=== PATIENT | female | born 1980 | race Caucasian/White ===

== ENCOUNTER 2016-08-20 08:32 | Emergency (ER) | payer BC ==
[2016-08-20] MEDS ORDERED: ONDANSETRON 4 MG ORAL DISINTEGRATING TAB (S0181) As Ordered ONE (09:07)
[2016-08-20] MEDS ORDERED: KETOROLAC 30 MG/ML VIAL (J1885) As Ordered ONE (09:07)
--- NOTE | 2016-08-20 09:52 | REP ---
PELVIC ULTRASOUND: Real-time sonographic evaluation of the pelvis performed utilizing transabdominal and endovaginal technique. The urinary bladder is empty. The uterus measures 8.3 x 4.5 x 5.0 cm. Endometrial thickness is 1 cm with no endometrial fluid collection. Right ovary measures 2.9 x 1.9 x 1.7 cm and left ovary 4.7 x 3.9 x 4.2 cm. Complex cystic structure in the left ovary probably represents a small hemorrhagic cyst measuring 2.5 x 1.7 x 3.2 cm. There is mild free fluid. There is no evidence of ovarian torsion, with blood flow seen in each ovary with duplex Doppler evaluation. The resistive index of the right ovary is 0.59 and left ovary 0.41. IMPRESSION: Small complex cystic structure left ovary probably represents a small hemorrhagic cyst. Maximum diameter is 3.2 cm. Mild free fluid. No torsion. Signed by Ishan Pickens MD 08/20/2016 12:31 P
--- NOTE | 2016-08-20 10:08 | EDDOCDS ---
Nurse's Notes [facility] Name: Adilia Andrade Age: 36 yrs Sex: Female : 1980 Arrival Date: 08/20/2016 Time: 08:32 Bed I3 / M3 Private MD: Dori Martinez PA-C Diagnosis: Cystitis, unspecified;Unspecified ovarian cysts-left 3.2 cm Presentation: 08/20 08:37 Presenting complaint: Patient states: stomach pains for 1 hour. Risk factors: the kr3 patient reports no vaginal bleeding. Adult Sepsis Screening: The patient does not have new or worsening altered mentation. Patient's respiratory rate is less than 22. Systolic blood pressure is greater than 100. Patient has a qSOFA score of 0- Negative Sepsis Screen. Suicide/Homicide risk assessment- the patient denies having any suicidal and/or homicidal ideations and does not present with any other emotional, behavioral or mental health complaints. Status: Patient is not a special services coordinator or dependent. Transition of care: patient was not received from another setting of care. 08:37 Acuity: ADDISON Level 3 kr3 08:37 Method Of Arrival: Wheelchair kr3 Triage Assessment: 08:38 General: Appears in no apparent distress, Behavior is cooperative. Pain: Location: kr3 right lower quadrant and left lower quadrant Pain currently is 6 out of 10 on a pain scale. Pt Declines HIV testing. Neurological: Level of Consciousness is awake, alert. Respiratory: Respiratory effort is even, unlabored. GI: Reports lower abdominal pain, nausea, Denies constipation, diarrhea. : Denies burning with urination, urinary frequency, urgency. Derm: Skin is normal. 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 lisinopril 10 mg Oral tab once daily (Last dose: 08/19/2016) 2. multivitamin Oral tab daily - PMHx: Hypertension; - PSHx: none; - Social history: Smoking status: Patient states was never smoker of tobacco. No barriers to communication noted, The patient speaks fluent Lao, Speaks appropriately for age. - Family history: Not pertinent. - : The pt / caregiver states he / she is not on anticoagulants. Home medication list is obtained from the patient. - Exposure Risk Screening:: None identified. Screenin:10 Screening information is obtained from the patient. Fall risk: No risks identified. kpj Assistance ADL's: requires no assistance with activities of daily living. Abuse/DV Screen: The patient / caregiver reports he/she is: not in a situation that causes fear, pain or injury. Nutritional screening: No deficits noted. Advance Directives: Currently, there is no health care proxy. There is no active DNR order. There is no living will. There is no Power of Developer [employer]. Advance directive information has not previously been placed in an [facility] medical record. Further advance directive information is declined. home support is adequate. Assessment: 09:10 General: Appears in no apparent distress, well nourished, well groomed, Behavior is kpj appropriate for age, pleasant. Pain: Location: right lower quadrant and left lower quadrant Pain currently is 3 out of 10 on a pain scale. Quality of pain is described as feels like gas. Neurological: Level of Consciousness is awake, alert, Oriented to person, place, time. Respiratory: Airway is patent Respiratory effort is even, unlabored, Respiratory pattern is regular, symmetrical. GI: Abdomen is flat, non- distended Bowel sounds present X 4 quads. Abd is soft X 4 quads Abd is tender to palpation in right lower quadrant and left lower quadrant. : Reports vaginal bleeding that is spotty. Derm: Skin is pink, warm & dry. 09:53 Reassessment: Patient appears in no apparent distress at this time. Patient denies pain kpj at this time. Patient states feeling better. Patient states symptoms have improved. 10:05 General: Appears in no apparent distress, comfortable, Behavior is appropriate for age. kpj Pain: Denies pain. Neurological: No deficits noted. Respiratory: Airway is patent Respiratory effort is even, unlabored. : Reports vaginal bleeding that is spotty. Derm: Skin is pink, warm & dry. Vital Signs: 08:38 BP 99 / 54; Pulse 64; Resp 16; Temp 97.6(O); Pulse Ox 100% on R/A; Weight 58.51 kg (R); kr3 Height 5 ft. 4 in. (162.56 cm) (R); 09:52 BP 144 / 86; Pulse 99; Resp 16; Temp 96.0(T); Pulse Ox 98% on R/A; Pain 0/10; kpj 08:38 Body Mass Index 22.14 (58.51 kg, 162.56 cm) kr3 Vitals: 08:38 Log In Time: August 20, 2016 at 08:30. kr3 ED Course: 08:33 Patient visited by Betzy Toledo Reg. lg 08:33 Dori Martinez is Private Physician. lg 08:33 Patient moved to Waiting lg 08:37 Triage Initiated kr3 08:41 Min Can PA-C is PHCP. cc10 08:41 Patient moved to I3 / M3 kr3 08:42 Dashawn Rees MD is Attending Physician. cc10 08:47 Patient visited by Min Can PA-C. cc10 08:47 Patient visited by Min Can PA-C. cc10 09:07 Urine Culture Sent. jam1 09:07 UA Sent. jam1 09:10 Resting quietly. Awaiting lab results. Waiting for radiology results. kpj 09:10 The patient / caregiver is instructed regarding the plan of care and ED course. Patient j has correct armband on for positive identification. 09:13 Patient moved to Ultrasound br3 09:31 Patient moved to I3 / M3 br3 09:49 Patient name changed from Adilia\S\F\S\Raymond\S\ to Adilia\S\Valentine\S\Raymond. EDMS 09:51 [facility] Payment Agreement was scanned into [employer] and attached to record. lg 09:53 Resting quietly. Waiting for radiology results. 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 cc10 09:56 -US Pelvic Non-Ob Complete Returned. EDMS 10:05 No apparent distress. kpj 10:05 No IV's were initiated during this patient's visit. No procedures done that require [facility] assistance. Administered Medications: 09:14 Drug: Ondansetron ODT 4 mg [ondansetron 4 mg disintegrating tablet (1 tabs)] Route: PO; kpj 09:52 Follow up: Response: Nausea is resolved kpj 09:15 Drug: ketorolac 60 mg [ketorolac 30 mg/mL (1 mL) injection solution (2 mL)] Route: IM; [facility] Site: left gluteus; 09:52 Follow up: Response: Pain is resolved [facility] Point of Care Testing: Urine : 09:07 hCG Reading: Negative; jam1 Ranges: Order Results: Lab Order: UA; SPEC'M 08/20/16 09:07 Test: APPEARANCE, URINE; Value: CLOUDY; Range: CLEAR; Abnormal: Above high normal; Status: F Test: COLOR, URINE; Value: NEIL; Range: YELLOW; Status: F Test: PH,URINE; Value: 6.0; Range: 5.0-9.0; Units: UNITS; Status: F Test: SPECIFIC GRAVITY URINE AUTO; Value: 1.024; Range: 1.002-1.035; Status: F Test: PROTEIN, URINE AUTO; Value: 1+; Range: NEGATIVE; Abnormal: Above high normal; Units: mg/dL; Status: F Test: GLUCOSE, URINE (UA) AUTO; Value: NEGATIVE; Range: NEGATIVE; Units: mg/dL; Status: F Test: KETONE, URINE AUTO; Value: 1+; Range: NEGATIVE; Abnormal: Above high normal; Units: mg/dL; Status: F Test: UROBILINOGEN, URINE AUTO; Value: 0.2; Range: 0.0-2.0; Units: mg/dL; Status: F Test: BILIRUBIN, URINE AUTO; Value: NEGATIVE; Range: NEGATIVE; Status: F Test: NITRITE, URINE AUTO; Value: NEGATIVE; Range: NEGATIVE; Status: F Test: LEUKOCYTE ESTERASE, URINE AUTO; Value: TRACE; Range: NEGATIVE; Abnormal: Above high normal; Status: F Test: BLOOD, URINE BLOOD; Value: 1+; Range: NEGATIVE; Abnormal: Above high normal; Status: F Test: WBC, URINE AUTO; Value: 16; Range: 0-3; Abnormal: Above high normal; Units: /HPF; Status: F Test: RBC, URINE AUTO; Value: 6; Range: 0-3; Abnormal: Above high normal; Units: /HPF; Status: F Test: BACTERIA, URINE AUTO; Value: 2+; Range: NEGATIVE; Abnormal: Above high normal; Status: F Test: SQUAMOUS EPITHELIAL CELL UR AU; Value: 4; Range: 0-6; Units: /HPF; Status: F Test: MUCUS, URINE; Value: LARGE; Range: NEGATIVE; Status: F Test: HYALINE CAST, URINE AUTO; Value: 0; Range: 0-1; Units: /LPF; Status: F Radiology Order: -US Pelvic Non-Ob Complete Test: -US Pelvic Non-Ob Complete REASON FOR EXAMINATION: Adnexal Pain r/o Torsion; PELVIC ULTRASOUND:; ; Real-time sonographic evaluation of the pelvis performed utilizing transabdominal; and endovaginal technique. The urinary bladder is empty. The uterus measures; 8.3 x 4.5 x 5.0 cm. Endometrial thickness is 1 cm with no endometrial fluid; collection. Right ovary measures 2.9 x 1.9 x 1.7 cm and left ovary 4.7 x 3.9 x; 4.2 cm. Complex cystic structure in the left ovary probably represents a small; hemorrhagic cyst measuring 2.5 x 1.7 x 3.2 cm. There is mild free fluid. There; is no evidence of ovarian torsion, with blood flow seen in each ovary with duplex; Doppler evaluation. The resistive index of the right ovary is 0.59 and left; ovary 0.41.; ; IMPRESSION:; Small complex cystic structure left ovary probably represents a small hemorrhagic; cyst. Maximum diameter is 3.2 cm. Mild free fluid. No torsion.; ; Unreviewed; Outcome: 09:56 Discharge ordered by Provider. cc10 10:05 Discharge Assessment: Patient awake, alert and oriented x 3. No cognitive and/or kpj functional deficits noted. Patient verbalized understanding of disposition instructions. patient administered narcotics - no. The following High Risk Discharge criteria are identified: None. Discharged to home ambulatory, with significant other. Condition: stable. Discharge instructions given to patient, Instructed on discharge instructions, follow up and referral plans. medication usage, no driving heavy equipment, no drinking with medication, Demonstrated understanding of instructions, medications, Pt was receptive of discharge instructions/ teaching. Prescriptions given X 2. Ultrasound Study completed. Property sent home with patient. 10:07 Patient left the ED. [facility] Signatures: Dispatcher [employer] EDMS Alva Villavicencio RN RN Shara [place], AGRICULTURE INSTRUCTOR AGRICULTURE INSTRUCTOR jam1 Betzy Toledo, Alison Macario lg,RN RN kr3 Carleen Mccartney br3 Min Can, PA-C PA-C cc10 MTDD
--- NOTE | 2016-08-20 10:08 | EDDOCDS ---
Physician Documentation [facility] Name: Adilia Andrade Age: 36 yrs Sex: Female : 1980 Arrival Date: 08/20/2016 Time: 08:32 Bed I3 / M3 Private MD: Dori Martinez PA-C Disposition: 08/20/16 09:56 Discharged to Home/Self Care. Impression: Cystitis, unspecified, Unspecified ovarian cysts - left 3.2 cm. - Condition is Stable. - Discharge Instructions: Ovarian Cyst, Urinary Tract Infection. - Prescriptions for Macrobid 100 mg Oral Capsule - take 100 milligrams by ORAL route every 12 hours for 5 days; 10 capsule. Ultram 50 mg Oral Tablet - take 1 tablet by ORAL route every 6 hours As needed MDD: 4 tabs; 12 tablet. - Medication Reconciliation form. - Follow up: Your Bakery Machine Mechanic; When: Call to arrange an appointment; Reason: Wound/Symptom Recheck, Recheck today's complaints, Worsening of conditions, Continuance of care. - Problem is new. - Symptoms have improved. Historical: - Allergies: no known allergies; - Home Meds: 1. lisinopril 10 mg Oral tab once daily (Last dose: 08/19/2016) 2. multivitamin Oral tab daily - PMHx: Hypertension; - PSHx: none; - Social history: Smoking status: Patient states was never smoker of tobacco. No barriers to communication noted, The patient speaks fluent Bangladeshi, Speaks appropriately for age. - Family history: Not pertinent. - : The pt / caregiver states he / she is not on anticoagulants. Home medication list is obtained from the patient. - Exposure Risk Screening:: None identified. 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 4 in. (162.56 cm) (R); 09:52 BP 144 / 86; Pulse 99; Resp 16; Temp 96.0(T); Pulse Ox 98% on R/A; Pain 0/10; kpj 08:38 Body Mass Index 22.14 (58.51 kg, 162.56 cm) kr3 MDM: 08:53 UCG by Nursing ordered. cc10 08:53 ketorolac 60 mg IM once ordered. cc10 08:53 Ondansetron ODT Oral Disintegrating Tablet 4 mg PO once ordered. cc10 08:54 UA Ordered. EDMS 08:54 Urine Culture Ordered. EDMS 08:55 -US Pelvic Non-Ob Complete Ordered. EDMS 08:55 DUPLEX SCAN LIMITED (DOPPLER)+US Ordered. EDMS 09:33 Transvaginal NON- US Ordered. EDMS 09:33 Financial registration complete. lg 09:51 COUNTS INCLUDE 234 BEDS AT THE [facility] Payment Agreement was scanned into [employer] and attached to record. lg 09:53 UA Reviewed. cc10 Point of Care Testing: Urine : 09:07 hCG Reading: Negative; jam1 Ranges: Administered Medications: 09:14 Drug: Ondansetron ODT 4 mg [ondansetron 4 mg disintegrating tablet (1 tabs)] Route: PO; [facility] 09:52 Follow up: Response: Nausea is resolved [facility] 09:15 Drug: ketorolac 60 mg [ketorolac 30 mg/mL (1 mL) injection solution (2 mL)] Route: IM; [facility] Site: left gluteus; 09:52 Follow up: Response: Pain is resolved [facility] Signatures: Dispatcher [employer] Alva Knott, RN RN j Betzy Toledo, Lorenzo Reg lg Alison Irvin,RN RN kr3 Min Can, BORA PAAbdirahman cc10 The chart was reviewed and I authenticate all verbal orders and agree with the evaluation and treatment provided.Attachments: 09:51 COUNTS INCLUDE 234 BEDS AT THE [facility] Payment Agreement lg MTDD
--- NOTE | 2016-08-22 11:08 | EDDOCDS ---
Physician Documentation [facility] Name: Adilia Andrade Age: 36 yrs Sex: Female : 1980 Arrival Date: 08/20/2016 Time: 08:32 Bed I3 / M3 Private MD: Dori Martinez PA-C Disposition: 08/20/16 09:56 Discharged to Home/Self Care. Impression: Cystitis, unspecified, Unspecified ovarian cysts - left 3.2 cm. - Condition is Stable. - Discharge Instructions: Ovarian Cyst, Urinary Tract Infection. - Prescriptions for Macrobid 100 mg Oral Capsule - take 100 milligrams by ORAL route every 12 hours for 5 days; 10 capsule. Ultram 50 mg Oral Tablet - take 1 tablet by ORAL route every 6 hours As needed MDD: 4 tabs; 12 tablet. - Medication Reconciliation form. - Follow up: Your Crm Coordinator; When: Call to arrange an appointment; Reason: Wound/Symptom Recheck, Recheck today's complaints, Worsening of conditions, Continuance of care. - Problem is new. - Symptoms have improved. Historical: - Allergies: no known allergies; - Home Meds: 1. lisinopril 10 mg Oral tab once daily (Last dose: 08/19/2016) 2. multivitamin Oral tab daily - PMHx: Hypertension; - PSHx: none; - Social history: Smoking status: Patient states was never smoker of tobacco. No barriers to communication noted, The patient speaks fluent Trinidadian, Speaks appropriately for age. - Family history: Not pertinent. - : The pt / caregiver states he / she is not on anticoagulants. Home medication list is obtained from the patient. - Exposure Risk Screening:: None identified. 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 4 in. (162.56 cm) (R); 09:52 BP 144 / 86; Pulse 99; Resp 16; Temp 96.0(T); Pulse Ox 98% on R/A; Pain 0/10; kpj 08:38 Body Mass Index 22.14 (58.51 kg, 162.56 cm) kr3 MDM: 08:53 UCG by Nursing ordered. cc10 08:53 ketorolac 60 mg IM once ordered. cc10 08:53 Ondansetron ODT Oral Disintegrating Tablet 4 mg PO once ordered. cc10 08:54 UA Ordered. EDMS 08:54 Urine Culture Ordered. EDMS 08:55 -US Pelvic Non-Ob Complete Ordered. EDMS 08:55 DUPLEX SCAN LIMITED (DOPPLER)+US Ordered. EDMS 09:33 Transvaginal NON- US Ordered. EDMS 09:33 Financial registration complete. lg 09:51 [facility] Payment Agreement was scanned into [employer] and attached to record. lg 09:53 UA Reviewed. cc10 15:30 T-Sheet-- Draft Copy was scanned into [employer] and attached to record. gb Point of Care Testing: Urine : 09:07 hCG Reading: Negative; jam1 Ranges: Administered Medications: 09:14 Drug: Ondansetron ODT 4 mg [ondansetron 4 mg disintegrating tablet (1 tabs)] Route: PO; [facility] 09:52 Follow up: Response: Nausea is resolved [facility] 09:15 Drug: ketorolac 60 mg [ketorolac 30 mg/mL (1 mL) injection solution (2 mL)] Route: IM; [facility] Site: left gluteus; 09:52 Follow up: Response: Pain is resolved [facility] Signatures: Dispatcher [employer] Alva Knott RN RN [facility] Suzette Trimble, Reg Reg gb Betzy Toledo, Reg Reg lg Alison Irvin RN RN kr3 Min Can, PA-C PA-C cc10 The chart was reviewed and I authenticate all verbal orders and agree with the evaluation and treatment provided.Attachments: 09:51 [facility] Payment Agreement lg 15:30 T-Sheet-- Draft Copy gb Chart Complete MTDD
--- NOTE | 2016-08-22 11:08 | EDDOCDS ---
Nurse's Notes [facility] Name: Adilia Andrade Age: 36 yrs Sex: Female : 1980 Arrival Date: 08/20/2016 Time: 08:32 Bed I3 / M3 Private MD: Dori Martinez PA-C Diagnosis: Cystitis, unspecified;Unspecified ovarian cysts-left 3.2 cm Presentation: 08/20 08:37 Presenting complaint: Patient states: stomach pains for 1 hour. Risk factors: the kr3 patient reports no vaginal bleeding. Adult Sepsis Screening: The patient does not have new or worsening altered mentation. Patient's respiratory rate is less than 22. Systolic blood pressure is greater than 100. Patient has a qSOFA score of 0- Negative Sepsis Screen. Suicide/Homicide risk assessment- the patient denies having any suicidal and/or homicidal ideations and does not present with any other emotional, behavioral or mental health complaints. Status: Patient is not a rn support services or dependent. Transition of care: patient was not received from another setting of care. 08:37 Acuity: ADDISON Level 3 kr3 08:37 Method Of Arrival: Wheelchair kr3 Triage Assessment: 08:38 General: Appears in no apparent distress, Behavior is cooperative. Pain: Location: kr3 right lower quadrant and left lower quadrant Pain currently is 6 out of 10 on a pain scale. Pt Declines HIV testing. Neurological: Level of Consciousness is awake, alert. Respiratory: Respiratory effort is even, unlabored. GI: Reports lower abdominal pain, nausea, Denies constipation, diarrhea. : Denies burning with urination, urinary frequency, urgency. Derm: Skin is normal. 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 lisinopril 10 mg Oral tab once daily (Last dose: 08/19/2016) 2. multivitamin Oral tab daily - PMHx: Hypertension; - PSHx: none; - Social history: Smoking status: Patient states was never smoker of tobacco. No barriers to communication noted, The patient speaks fluent Swedish, Speaks appropriately for age. - Family history: Not pertinent. - : The pt / caregiver states he / she is not on anticoagulants. Home medication list is obtained from the patient. - Exposure Risk Screening:: None identified. Screenin:10 Screening information is obtained from the patient. Fall risk: No risks identified. kpj Assistance ADL's: requires no assistance with activities of daily living. Abuse/DV Screen: The patient / caregiver reports he/she is: not in a situation that causes fear, pain or injury. Nutritional screening: No deficits noted. Advance Directives: Currently, there is no health care proxy. There is no active DNR order. There is no living will. There is no Power of Process Checker. Advance directive information has not previously been placed in an [facility] medical record. Further advance directive information is declined. home support is adequate. Assessment: 09:10 General: Appears in no apparent distress, well nourished, well groomed, Behavior is kpj appropriate for age, pleasant. Pain: Location: right lower quadrant and left lower quadrant Pain currently is 3 out of 10 on a pain scale. Quality of pain is described as feels like gas. Neurological: Level of Consciousness is awake, alert, Oriented to person, place, time. Respiratory: Airway is patent Respiratory effort is even, unlabored, Respiratory pattern is regular, symmetrical. GI: Abdomen is flat, non- distended Bowel sounds present X 4 quads. Abd is soft X 4 quads Abd is tender to palpation in right lower quadrant and left lower quadrant. : Reports vaginal bleeding that is spotty. Derm: Skin is pink, warm & dry. 09:53 Reassessment: Patient appears in no apparent distress at this time. Patient denies pain kpj at this time. Patient states feeling better. Patient states symptoms have improved. 10:05 General: Appears in no apparent distress, comfortable, Behavior is appropriate for age. kpj Pain: Denies pain. Neurological: No deficits noted. Respiratory: Airway is patent Respiratory effort is even, unlabored. : Reports vaginal bleeding that is spotty. Derm: Skin is pink, warm & dry. Vital Signs: 08:38 BP 99 / 54; Pulse 64; Resp 16; Temp 97.6(O); Pulse Ox 100% on R/A; Weight 58.51 kg (R); kr3 Height 5 ft. 4 in. (162.56 cm) (R); 09:52 BP 144 / 86; Pulse 99; Resp 16; Temp 96.0(T); Pulse Ox 98% on R/A; Pain 0/10; kpj 08:38 Body Mass Index 22.14 (58.51 kg, 162.56 cm) kr3 Vitals: 08:38 Log In Time: August 20, 2016 at 08:30. kr3 ED Course: 08:33 Patient visited by Betzy Toledo Reg. lg 08:33 Dori Martinez is Private Physician. lg 08:33 Patient moved to Waiting lg 08:37 Triage Initiated kr3 08:41 Min Can PA-C is PHCP. cc10 08:41 Patient moved to I3 / M3 kr3 08:42 Dashawn Rees MD is Attending Physician. cc10 08:47 Patient visited by Min Can PA-C. cc10 08:47 Patient visited by Min Can PA-C. cc10 09:07 Urine Culture Sent. jam1 09:07 UA Sent. jam1 09:10 Resting quietly. Awaiting lab results. Waiting for radiology results. kpj 09:10 The patient / caregiver is instructed regarding the plan of care and ED course. Patient j has correct armband on for positive identification. 09:13 Patient moved to Ultrasound br3 09:31 Patient moved to I3 / M3 br3 09:49 Patient name changed from Adilia\S\F\S\Raymond\S\ to Adilia\S\Valentine\S\Raymond. EDMS 09:51 [facility] Payment Agreement was scanned into [employer] and attached to record. lg 09:53 Resting quietly. Waiting for radiology results. kpj 09:56 Your Traveler Changer is Referral Physician. cc10 09:56 -US Pelvic Non-Ob Complete Returned. EDMS 10:05 No apparent distress. kpj 10:05 No IV's were initiated during this patient's visit. No procedures done that require [facility] assistance. 15:30 T-Sheet-- Draft Copy was scanned into [employer] and attached to record. gb Administered Medications: 09:14 Drug: Ondansetron ODT 4 mg [ondansetron 4 mg disintegrating tablet (1 tabs)] Route: PO; kpj 09:52 Follow up: Response: Nausea is resolved kpj 09:15 Drug: ketorolac 60 mg [ketorolac 30 mg/mL (1 mL) injection solution (2 mL)] Route: IM; kpj Site: left gluteus; 09:52 Follow up: Response: Pain is resolved [facility] Point of Care Testing: Urine : 09:07 hCG Reading: Negative; jam1 Ranges: Order Results: Lab Order: UA; SPEC'M 08/20/16 09:07 Test: APPEARANCE, URINE; Value: CLOUDY; Range: CLEAR; Abnormal: Above high normal; Status: F Test: COLOR, URINE; Value: NEIL; Range: YELLOW; Status: F Test: PH,URINE; Value: 6.0; Range: 5.0-9.0; Units: UNITS; Status: F Test: SPECIFIC GRAVITY URINE AUTO; Value: 1.024; Range: 1.002-1.035; Status: F Test: PROTEIN, URINE AUTO; Value: 1+; Range: NEGATIVE; Abnormal: Above high normal; Units: mg/dL; Status: F Test: GLUCOSE, URINE (UA) AUTO; Value: NEGATIVE; Range: NEGATIVE; Units: mg/dL; Status: F Test: KETONE, URINE AUTO; Value: 1+; Range: NEGATIVE; Abnormal: Above high normal; Units: mg/dL; Status: F Test: UROBILINOGEN, URINE AUTO; Value: 0.2; Range: 0.0-2.0; Units: mg/dL; Status: F Test: BILIRUBIN, URINE AUTO; Value: NEGATIVE; Range: NEGATIVE; Status: F Test: NITRITE, URINE AUTO; Value: NEGATIVE; Range: NEGATIVE; Status: F Test: LEUKOCYTE ESTERASE, URINE AUTO; Value: TRACE; Range: NEGATIVE; Abnormal: Above high normal; Status: F Test: BLOOD, URINE BLOOD; Value: 1+; Range: NEGATIVE; Abnormal: Above high normal; Status: F Test: WBC, URINE AUTO; Value: 16; Range: 0-3; Abnormal: Above high normal; Units: /HPF; Status: F Test: RBC, URINE AUTO; Value: 6; Range: 0-3; Abnormal: Above high normal; Units: /HPF; Status: F Test: BACTERIA, URINE AUTO; Value: 2+; Range: NEGATIVE; Abnormal: Above high normal; Status: F Test: SQUAMOUS EPITHELIAL CELL UR AU; Value: 4; Range: 0-6; Units: /HPF; Status: F Test: MUCUS, URINE; Value: LARGE; Range: NEGATIVE; Status: F Test: HYALINE CAST, URINE AUTO; Value: 0; Range: 0-1; Units: /LPF; Status: F Lab Order: Urine Culture; SPEC'M 08/20/16 09:07 Test: URINE CULTURE; Value: <EXTERNAL COMMENT eCWMed> FULL REPORT IN LAB NOTES (eCW and Medent).; Status: F Test: URINE CULTURE; Value: URINE CULTURE RESULT NO GROWTH; Status: F Radiology Order: -US Pelvic Non-Ob Complete Test: -US Pelvic Non-Ob Complete REASON FOR EXAMINATION: Adnexal Pain r/o Torsion; PELVIC ULTRASOUND:; ; Real-time sonographic evaluation of the pelvis performed utilizing transabdominal; and endovaginal technique. The urinary bladder is empty. The uterus measures; 8.3 x 4.5 x 5.0 cm. Endometrial thickness is 1 cm with no endometrial fluid; collection. Right ovary measures 2.9 x 1.9 x 1.7 cm and left ovary 4.7 x 3.9 x; 4.2 cm. Complex cystic structure in the left ovary probably represents a small; hemorrhagic cyst measuring 2.5 x 1.7 x 3.2 cm. There is mild free fluid. There; is no evidence of ovarian torsion, with blood flow seen in each ovary with duplex; Doppler evaluation. The resistive index of the right ovary is 0.59 and left; ovary 0.41.; ; IMPRESSION:; ; Small complex cystic structure left ovary probably represents a small hemorrhagic; cyst. Maximum diameter is 3.2 cm. Mild free fluid. No torsion.; ; ; Signed by; Ishan Pickens MD 08/20/2016 12:31 P; Outcome: 09:56 Discharge ordered by Provider. cc 10:05 Discharge Assessment: Patient awake, alert and oriented x 3. No cognitive and/or kpj functional deficits noted. Patient verbalized understanding of disposition instructions. patient administered narcotics - no. The following High Risk Discharge criteria are identified: None. Discharged to home ambulatory, with significant other. Condition: stable. Discharge instructions given to patient, Instructed on discharge instructions, follow up and referral plans. medication usage, no driving heavy equipment, no drinking with medication, Demonstrated understanding of instructions, medications, Pt was receptive of discharge instructions/ teaching. Prescriptions given X 2. Ultrasound Study completed. Property sent home with patient. 10:07 Patient left the ED. kpj Signatures: Dispatcher [facility] EDAlva Martinez, RN RN kpj Shara Tai, THROW OUT CLERK THROW OUT CLERK jam1 Suzette Trimble, Reg Reg gb Betzy Toledo, Reg Reg lg Alison Irvin,RN RN kr3 Carleen Mccartney br3 Min Can, PA-C PA-C cc10 Chart Complete MTDD
--- NOTE | 2016-08-22 11:08 | EDDOCDS ---
Physician Documentation [facility] Name: Adilia Andrade Age: 36 yrs Sex: Female : 1980 Arrival Date: 08/20/2016 Time: 08:32 Bed I3 / M3 Private MD: Dori Martinez PA-C Disposition: 08/20/16 09:56 Discharged to Home/Self Care. Impression: Cystitis, unspecified, Unspecified ovarian cysts - left 3.2 cm. - Condition is Stable. - Discharge Instructions: Ovarian Cyst, Urinary Tract Infection. - Prescriptions for Macrobid 100 mg Oral Capsule - take 100 milligrams by ORAL route every 12 hours for 5 days; 10 capsule. Ultram 50 mg Oral Tablet - take 1 tablet by ORAL route every 6 hours As needed MDD: 4 tabs; 12 tablet. - Medication Reconciliation form. - Follow up: Your Installer; When: Call to arrange an appointment; Reason: Wound/Symptom Recheck, Recheck today's complaints, Worsening of conditions, Continuance of care. - Problem is new. - Symptoms have improved. Historical: - Allergies: no known allergies; - Home Meds: 1. lisinopril 10 mg Oral tab once daily (Last dose: 08/19/2016) 2. multivitamin Oral tab daily - PMHx: Hypertension; - PSHx: none; - Social history: Smoking status: Patient states was never smoker of tobacco. No barriers to communication noted, The patient speaks fluent Swedish, Speaks appropriately for age. - Family history: Not pertinent. - : The pt / caregiver states he / she is not on anticoagulants. Home medication list is obtained from the patient. - Exposure Risk Screening:: None identified. 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 4 in. (162.56 cm) (R); 09:52 BP 144 / 86; Pulse 99; Resp 16; Temp 96.0(T); Pulse Ox 98% on R/A; Pain 0/10; kpj 08:38 Body Mass Index 22.14 (58.51 kg, 162.56 cm) kr3 MDM: 08:53 UCG by Nursing ordered. cc10 08:53 ketorolac 60 mg IM once ordered. cc10 08:53 Ondansetron ODT Oral Disintegrating Tablet 4 mg PO once ordered. cc10 08:54 UA Ordered. EDMS 08:54 Urine Culture Ordered. EDMS 08:55 -US Pelvic Non-Ob Complete Ordered. EDMS 08:55 DUPLEX SCAN LIMITED (DOPPLER)+US Ordered. EDMS 09:33 Transvaginal NON- US Ordered. EDMS 09:33 Financial registration complete. lg 09:51 [facility] Payment Agreement was scanned into [employer] and attached to record. lg 09:53 UA Reviewed. cc10 15:30 T-Sheet-- Draft Copy was scanned into [employer] and attached to record. gb Point of Care Testing: Urine : 09:07 hCG Reading: Negative; jam1 Ranges: Administered Medications: 09:14 Drug: Ondansetron ODT 4 mg [ondansetron 4 mg disintegrating tablet (1 tabs)] [facility]: [facility] 09:52 Follow up: Response: Nausea is resolved [facility] 09:15 Drug: ketorolac 60 mg [ketorolac 30 mg/mL (1 mL) injection solution (2 mL)] Route: IM; [facility] Site: left gluteus; 09:52 Follow up: Response: Pain is resolved [facility] Signatures: Dispatcher [employer] Alva Knott RN RN [facility] Suzette Trimble, Reg Reg gb Betzy Toledo, Reg Reg lg Alison Irvin RN RN kr3 Min Can, PA-C PA-C cc10 The chart was reviewed and I authenticate all verbal orders and agree with the evaluation and treatment provided.Attachments: 09:51 [facility] Payment Agreement lg 15:30 T-Sheet-- Draft Copy gb Chart Complete MTDD
== END 2016-08-20 10:07 | disposition home or self-care (01) ==
LOC: M ED 08:32
DX: N30.90 Cystitis, unspecified without hematuria (principal); N83.202 Unspecified ovarian cyst, left side; I10 Essential (primary) hypertension; Z79.899 Other long term (current) drug therapy
CPT/HCPCS: 76830; 76856; 81001; 81025; 87086; 93976; 96372; 99284; J1885

== ENCOUNTER → 2016-09-07 | Outpatient (CLI) | payer BC ==
[2016-09-07 12:35] LABS: ALBUMIN 3.8 GM/DL (3.2-5.2); ALBUMIN/GLOBULIN RATIO 1.19 (1.00-1.93); ALKALINE PHOSPHATASE 72 U/L (45-117); ALT/SGPT 18 U/L (12-78); ANION GAP 8 MEQ/L (8-16); AST/SGOT 17 U/L (15-37); BILIRUBIN,TOTAL 0.6 MG/DL (0.2-1.0); BLOOD UREA NITROGEN 12 MG/DL (7-18); CALCIUM LEVEL 9.4 MG/DL (8.5-10.1); CARBON DIOXIDE LEVEL 29 MEQ/L (21-32); CHLORIDE LEVEL 107 MEQ/L (98-107); CREATININE FOR GFR 0.52 MG/DL (0.55-1.02); GLOMERULAR FILTRATION RATE > 60.0 (>60); GLUCOSE, FASTING 88 MG/DL (70-105); POTASSIUM SERUM 3.9 MEQ/L (3.5-5.1); SODIUM LEVEL 144 MEQ/L (136-145)
== END ==
LOC: M LAB 11:38
PROVIDERS: ATTEND Physician Assistant
DX: I10 Essential (primary) hypertension (principal); R01.1 Cardiac murmur, unspecified; R00.0 Tachycardia, unspecified

== ENCOUNTER → 2016-09-26 | Outpatient (REF) | payer BC ==
[2016-09-26 15:59] LABS: ANION GAP 6 MEQ/L (8-16); BLOOD UREA NITROGEN 19 MG/DL (7-18); CALCIUM LEVEL 9.1 MG/DL (8.5-10.1); CARBON DIOXIDE LEVEL 30 MEQ/L (21-32); CHLORIDE LEVEL 106 MEQ/L (98-107); FREE T4 3.56 NG/DL (0.76-1.46); GLOMERULAR FILTRATION RATE > 60.0 (>60); GLUCOSE, FASTING 109 MG/DL (70-105); POTASSIUM SERUM 4.4 MEQ/L (3.5-5.1); SODIUM LEVEL 142 MEQ/L (136-145)
== END ==
LOC: M SFHCLACO 09:29
PROVIDERS: ATTEND Physician Assistant
DX: E05.90 Thyrotoxicosis, unspecified without thyrotoxic crisis or storm (principal)

== ENCOUNTER → 2016-10-03 | Outpatient (REF) | payer BC ==
[2016-10-03 17:07] LABS: FREE T4 3.58 NG/DL (0.76-1.46)
== END ==
LOC: M LABDRAW1 15:42
PROVIDERS: ATTEND Internal Medicine Endocrinology, Diabetes & Metabolism
DX: E05.00 Thyrotoxicosis with diffuse goiter without thyrotoxic crisis or storm (principal)

== ENCOUNTER → 2016-10-21 | Outpatient (CLI) | payer BC ==
--- NOTE | 2016-10-22 13:47 | REP ---
Thyroid nuclear scintigraphy with 24 uptake: History: Hyperthyroidism. Findings: Functional thyroid images demonstrate homogeneous uptake in somewhat prominent size thyroid lobes bilaterally. Right lobe is a little larger than the left. No cold or warm lesion is seen. The 24 uptake value is elevated 63% (25-35%). Impression: Findings compatible with Graves disease. Signed by Rachid Ashby MD 10/22/2016 01:39 P
== END ==
LOC: M RAD 12:03
PROVIDERS: ATTEND Internal Medicine Endocrinology, Diabetes & Metabolism
DX: E05.00 Thyrotoxicosis with diffuse goiter without thyrotoxic crisis or storm (principal)

== ENCOUNTER → 2016-11-05 | Outpatient (CLI) | payer BC | LOC: M LAB 15:45 | PROVIDERS: ATTEND Internal Medicine Endocrinology, Diabetes & Metabolism | DX: E05.00 Thyrotoxicosis with diffuse goiter without thyrotoxic crisis or storm (principal) ==

== ENCOUNTER → 2016-11-07 | Outpatient (CLI) | payer BC | LOC: M RAD 11:25 | PROVIDERS: ATTEND Internal Medicine Endocrinology, Diabetes & Metabolism | DX: E05.00 Thyrotoxicosis with diffuse goiter without thyrotoxic crisis or storm (principal) | CPT/HCPCS: 79005; A9517 ==

== ENCOUNTER → 2016-12-30 | Outpatient (CLI) | payer BC ==
[2016-12-30 12:02] LABS: FREE T4 0.26 NG/DL (0.76-1.46)
== END ==
LOC: M LAB 09:39
PROVIDERS: ATTEND Internal Medicine Endocrinology, Diabetes & Metabolism
DX: E05.00 Thyrotoxicosis with diffuse goiter without thyrotoxic crisis or storm (principal)

== ENCOUNTER → 2017-03-06 | Outpatient (REF) | payer BC ==
[2017-03-06 18:28] LABS: FREE T4 1.68 NG/DL (0.76-1.46)
== END ==
LOC: M LAB REF 15:07
PROVIDERS: ATTEND Internal Medicine Endocrinology, Diabetes & Metabolism
DX: E89.0 Postprocedural hypothyroidism (principal)

== ENCOUNTER → 2017-05-30 | Outpatient (CLI) | payer BC ==
[2017-05-30 13:29] LABS: FREE T4 1.38 NG/DL (0.76-1.46)
== END ==
LOC: M LAB 12:31
PROVIDERS: ATTEND Internal Medicine Endocrinology, Diabetes & Metabolism
DX: E89.0 Postprocedural hypothyroidism (principal)

== ENCOUNTER → 2017-08-01 | Outpatient (CLI) | payer BC ==
[2017-08-01 18:53] LABS: FREE T4 1.07 NG/DL (0.76-1.46)
== END ==
LOC: M LAB 17:31
DX: E89.0 Postprocedural hypothyroidism (principal)
CPT/HCPCS: 84443

== ENCOUNTER → 2017-11-20 | Outpatient (REF) | payer BC ==
[2017-11-20 15:55] LABS: FREE T4 1.13 NG/DL (0.76-1.46)
== END ==
LOC: M LAB REF 14:51
DX: E89.0 Postprocedural hypothyroidism (principal)
CPT/HCPCS: 84443

== ENCOUNTER → 2018-02-02 | Outpatient (CLI) | payer BC ==
[2018-02-02 17:07] LABS: FREE T4 1.37 NG/DL (0.76-1.46)
== END ==
LOC: M LAB 16:02
DX: E89.0 Postprocedural hypothyroidism (principal)
CPT/HCPCS: 84443

== ENCOUNTER → 2018-04-02 | Outpatient (CLI) | payer BC | LOC: M LAB 16:44 | DX: E89.0 Postprocedural hypothyroidism (principal) | CPT/HCPCS: 84443 ==

== ENCOUNTER → 2018-10-01 | Outpatient (CLI) | payer BC ==
[2018-10-01 17:39] LABS: FREE T4 1.25 NG/DL (0.76-1.46); THYROID STIMULATING HORMONE 2.21 uIU/ML (0.358-3.740)
== END ==
LOC: M LAB 16:27
PROVIDERS: ATTEND Nurse Practitioner Family
DX: E89.0 Postprocedural hypothyroidism (principal)

== ENCOUNTER → 2019-03-22 | Outpatient (CLI) | payer BC ==
--- NOTE | 2019-03-23 05:38 | REP ---
Clinical: Periumbilical abdominal pain. Technique: Real time porter scale ultrasound examination using curved array transducer. Findings: Liver and pancreas are normal in contour, size, echogenicity without focal hepatic or pancreatic lesion identified. The gallbladder is normal and without gallstones, wall thickening, or pericholecystic fluid. No biliary ductal dilatation is appreciated and the common bile duct measures 3.1 mm diameter. Right kidney is normal in reniform shape without hydronephrosis and measures 12.3 x 6.2 x 4.4 cm. Abdominal aorta appears normal. No ascites. Impression: Normal right upper quadrant abdominal ultrasound. Electronically Signed by Timo Jensen MD 03/23/2019 05:30 A
== END ==
LOC: M RAD 06:31
PROVIDERS: ATTEND Physician Assistant
DX: R10.33 Periumbilical pain (principal)

== ENCOUNTER → 2019-04-03 | Outpatient (CLI) | payer BC ==
[2019-04-03 10:39] LABS: FREE T4 1.38 NG/DL (0.76-1.46); THYROID STIMULATING HORMONE 1.87 uIU/ML (0.358-3.740)
== END ==
LOC: M LAB 08:58
PROVIDERS: ATTEND Nurse Practitioner Family
DX: E89.0 Postprocedural hypothyroidism (principal)

== ENCOUNTER → 2019-04-30 | Outpatient (CLI) | payer BC ==
--- NOTE | 2019-04-30 15:08 | REP ---
REASON FOR EXAM: Flank pain. COMPARISON EXAM: Obtained 01/12/2013 which was within normal limits. FINDINGS: Multiple ultrasonographic images of the right kidney show the right kidney to measure 11.5 x 5.3 x 3.6 cm. The renal cortical echotexture is unremarkable. There are no masses. There is good corticomedullary differentiation. There is no hydronephrosis. There are no perinephric fluid collections. Multiple ultrasonographic images of the left kidney show the left kidney to measure 12.3 x 5.2 x 6.4 cm. The renal cortical echotexture is unremarkable. There are no masses. There is good corticomedullary differentiation. There is no hydronephrosis. There are no perinephric fluid collections. Imaging of the urinary bladder was obtained solely for the purposes for assessing UV jet phenomenon bilaterally. Doppler of the urinary bladder shows uro-jet phenomenon bilaterally. IMPRESSION: Unremarkable renal ultrasonography. Electronically Signed by Salinas Carpio DO 04/30/2019 04:23 P
== END ==
LOC: M RAD 08:16
PROVIDERS: ATTEND Physician Assistant
DX: M54.9 Dorsalgia, unspecified (principal)

== ENCOUNTER → 2019-09-04 | Outpatient (CLI) | payer BC | LOC: M ADAMS 09:16 | PROVIDERS: ATTEND Physician Assistant | DX: I10 Essential (primary) hypertension (principal); E05.90 Thyrotoxicosis, unspecified without thyrotoxic crisis or storm ==

== ENCOUNTER → 2019-09-04 | Outpatient (REF) | payer BC ==
[2019-09-04 18:15] LABS: HEMATOCRIT 38.9 % (36.0-47.0); HEMOGLOBIN 13.1 g/dl (12.0-15.5); MEAN CORPUSCULAR HEMOGLOBIN 31.5 pg (27.0-33.0); MEAN CORPUSCULAR HGB CONC 33.7 g/dl (32.0-36.5); MEAN CORPUSCULAR VOLUME 93.5 fl (80.0-96.0); PLATELET COUNT, AUTOMATED 184 10^3/uL (150-450); RED BLOOD COUNT 4.16 10^6/uL (4.00-5.40); WHITE BLOOD COUNT 4.5 10^3/uL (4.0-10.0)
[2019-09-04 18:51] LABS: ALBUMIN 4.2 GM/DL (3.2-5.2); ALT/SGPT 20 U/L (12-78); BILIRUBIN,TOTAL 0.5 MG/DL (0.2-1.0); BLOOD UREA NITROGEN 14 MG/DL (7-18); CALCIUM LEVEL 8.6 MG/DL (8.5-10.1); CARBON DIOXIDE LEVEL 30 MEQ/L (21-32); CHLORIDE LEVEL 103 MEQ/L (98-107); FERRITIN 17 NG/ML (8-252); GLOMERULAR FILTRATION RATE > 60.0 (>60); GLUCOSE, FASTING 85 MG/DL (70-100); IRON (FE) 54 UG/DL (50-170); POTASSIUM SERUM 3.8 MEQ/L (3.5-5.1); SODIUM LEVEL 137 MEQ/L (136-145); TOTAL IRON BINDING CAPACITY 361 UG/DL (250-450); TOTAL PROTEIN 6.9 GM/DL (6.4-8.2)
[2019-09-06 09:45] LABS: PTH INTACT 50.3 PG/ML (18.5-88.0)
== END ==
LOC: M SFHCADAM 09:10
PROVIDERS: ATTEND Physician Assistant
DX: I10 Essential (primary) hypertension (principal); E05.90 Thyrotoxicosis, unspecified without thyrotoxic crisis or storm

== ENCOUNTER → 2020-04-26 | Outpatient (CLI) | payer BC ==
[~2020-04-26] MED LIST: CITA20TA6; LEVO125T4; LISI10TA4; NORC1TAB7 PO
== END ==
LOC: M LAB 15:44
PROVIDERS: ATTEND Internal Medicine Endocrinology, Diabetes & Metabolism
DX: E89.0 Postprocedural hypothyroidism (principal)

== ENCOUNTER 2020-05-06 14:14 | Emergency (ER) | payer BC ==
[~2020-05-06] VITALS: Ht 160 cm; Wt 63.2 kg
[2020-05-06] MEDS ORDERED: LISI10TA4 (14:31)
[2020-05-06] MEDS ORDERED: LEVO125T4 (14:31)
[2020-05-06] MEDS ORDERED: CITA20TA6 (14:31)
[2020-05-06 15:36] LABS: BASO % 0.2 % (0.0-1.0); EOS % 0.1 % (0.0-3.0); HEMATOCRIT 46.4 % (36.0-47.0); HEMOGLOBIN 15.3 g/dl (12.0-15.5); LYMPH # 0.8 10^3/uL (1.5-5.0); MEAN CORPUSCULAR HEMOGLOBIN 30.3 pg (27.0-33.0); MEAN CORPUSCULAR VOLUME 91.9 fl (80.0-96.0); MONO # 0.4 10^3/uL (0.0-0.8); MONO % 3.2 % (0.0-5.0); NEUTROPHILS # 12.3 10^3/uL (1.5-8.5); NEUTROPHILS % 90.1 % (36.0-66.0); PLATELET COUNT, AUTOMATED 211 10^3/uL (150-450); RED BLOOD COUNT 5.05 10^6/uL (4.00-5.40); WHITE BLOOD COUNT 13.6 10^3/uL (4.0-10.0)
[2020-05-06] MEDS ORDERED: LIDOCAINE 5% (LIDODERM) PATCH TD ONE (16:00)
[2020-05-06] MEDS ORDERED: ISOVUE-370 76% 100ML VIAL As Ordered ONE (16:40)
--- NOTE | 2020-05-06 16:54 | REP ---
INDICATION: R posterior/lateral ribs ttp, r/o fx. Posterior lower rib pain after a fall down stairs. COMPARISON: None. TECHNIQUE: Five views including PA chest. FINDINGS: PA chest radiograph is normal. There is no evidence of pneumothorax or hydrothorax. Mediastinum is not widened. Lung yeh are clear. Multiple views of the right rib cage demonstrateaaaaaaaaaaaaaaaaa right posterior 11th and 12th rib fractures. These are nondisplaced. IMPRESSION: Nondisplaced fractures of the posterior 11th and 12th right ribs. Otherwise negative. <Electronically signed by Cole Ashby > 05/06/20 [id number]
--- NOTE | 2020-05-06 16:57 | REP ---
INDICATION: R hip pain s/o fall. COMPARISON: None. TECHNIQUE: Five views. FINDINGS: Lumbar vertebral body heights are preserved. Alignment is normal. No fracture or collapse is seen. There is no evidence of spondylolysis or spondylolisthesis. There is minimal discogenic spurring at the anterior soup Anna ower endplate of L4 and of L5. Disc spaces are maintained. Facets are normally aligned. Psoas margins are intact. Sacrum and SI joints are intact. IMPRESSION: Minimal discogenic spurring. No acute bony abnormality. No fracture seen. <Electronically signed by Cole Ashby > 05/06/20 [id number]
--- NOTE | 2020-05-06 16:58 | REP ---
INDICATION: R hip pain s/o fall. COMPARISON: None. TECHNIQUE: AP pelvis and AP and frogleg views of the right hip. FINDINGS: The bony pelvic ring is intact. No sacral or pelvic fracture is seen. SI joints and symphysis pubis are intact. Hip joint spaces are preserved. Femoral heads are smooth and rounded. No hip fracture is seen. AP and frogleg views of the right hip show no additional abnormality. IMPRESSION: No fracture noted. <Electronically signed by Cole Ashby > 05/06/20 [id number]
[2020-05-06] MEDS ORDERED: MORPHINE 4 MG/ML 1ML VIAL/SYRINGE (J2270) IV ONE (17:00)
--- NOTE | 2020-05-06 17:20 | REP ---
INDICATION: r flank pain s/p fall. hematuria. COMPARISON: Comparison is made with today's rib series.. TECHNIQUE: Helical scanning was acquired and 4 mm axial images are re-formatted. Coronal and sagittal MPR images were generated and reviewed. The contrast enhancement dose is 100 mL of intravenous Isovue 370. FINDINGS: Digital preliminary facility manager histology radiograph shows an unremarkable bowel gas pattern. Number right and left lung bases are clear. The liver is normal in size homogeneous in texture. No hepatic hematoma is appreciated. There is a tiny subcentimeter cyst in the right lobe. The spleen is normal in size homogeneous in texture. No abnormality is noted in the pancreas. The gallbladder is unremarkable. Kidneys enhance symmetrically and are morphologically intact. No perinephric edema or hematoma is seen. there is no evidence of free air or upper abdominal ascites. There is a small quantity of fluid in the cul-de-sac which could be physiologic. There are bilateral small ovarian cysts, 2.9 cm on the left and 2.2 cm on the right. Urinary bladder is unremarkable. Small and large bowel loops are unremarkable in the abdomen and pelvis. On bone window settings, the right 12th and right 11th ribs are noted to be fractured minimally displaced. In addition, there are transverse process fractures on the right at L1, L2, and L3. There is sclerosis and early spurring at the superior anterior endplate of L3. No vertebral body fracture is appreciated. 9 IMPRESSION: Fractures of the right posterior 11th and 12th ribs and nondisplaced fractures of the right transverse process at L3, L2, and L1. Small bilateral ovarian follicle cyst. Minimal cul-de-sac fluid, question physiologic. Liver and spleen appear intact. No intra-abdominal traumatic abnormality. <Electronically signed by Cole Ashby > 05/06/20 [id number]
[2020-05-06] MEDS ORDERED: NORC1TAB7 PO (18:13)
[2020-05-06 18:14] VITALS: BP 134/76
[2020-05-06] MEDS ORDERED: **NOTE PATIENT COMMENT** MISC XX SCH (21:00)
== END 2020-05-06 18:29 | disposition home or self-care (01) ==
LOC: M ED 14:14
DX: S22.41XA Multiple fractures of ribs, right side, initial encounter for closed fracture (principal); N83.201 Unspecified ovarian cyst, right side; N83.202 Unspecified ovarian cyst, left side; W10.9XXA Fall (on) (from) unspecified stairs and steps, initial encounter; Y92.89 Other specified places as the place of occurrence of the external cause; Y93.89 Activity, other specified; Y99.8 Other external cause status; I10 Essential (primary) hypertension; E03.9 Hypothyroidism, unspecified; Z79.890 Hormone replacement therapy; Z79.899 Other long term (current) drug therapy
CPT/HCPCS: 71101; 72110; 73502; 74177; 80047; 81001; 84702; 85025; 96374; 99284; J2270; Q9967

== ENCOUNTER → 2020-07-06 | Outpatient (CLI) | payer BC ==
[2020-07-06 12:30] LABS: FREE T4 1.42 NG/DL (0.76-1.46); THYROID STIMULATING HORMONE 1.99 uIU/ML (0.358-3.740)
== END ==
LOC: M LAB 11:05
PROVIDERS: ATTEND Internal Medicine Endocrinology, Diabetes & Metabolism
DX: E89.0 Postprocedural hypothyroidism (principal)

== ENCOUNTER → 2021-01-23 | Outpatient (REF) | payer BC ==
[~2021-01-23] MED LIST changes: +LISI10TA22; -LISI10TA4
== END ==
LOC: M LABDRWAD 16:04
PROVIDERS: ATTEND Internal Medicine Endocrinology, Diabetes & Metabolism
DX: E89.0 Postprocedural hypothyroidism (principal)

== ENCOUNTER → 2021-08-15 | Outpatient (REF) | payer BC ==
[2021-08-15 16:54] LABS: BLOOD UREA NITROGEN 14 MG/DL (7-18); CALCIUM LEVEL 9.3 MG/DL (8.5-10.1); CARBON DIOXIDE LEVEL 30 MEQ/L (21-32); CHLORIDE LEVEL 105 MEQ/L (98-107); CREATININE FOR GFR 0.65 MG/DL (0.55-1.30); GLOMERULAR FILTRATION RATE > 60.0 (>60); GLUCOSE, FASTING 73 MG/DL (70-100); SODIUM LEVEL 141 MEQ/L (136-145)
== END ==
LOC: M SFHCADAM 14:55
PROVIDERS: ATTEND Physician Assistant
DX: I10 Essential (primary) hypertension (principal)

== ENCOUNTER → 2022-02-26 | Outpatient (CLI) | payer BC ==
[2022-02-26 14:20] LABS: FREE T4 1.26 NG/DL (0.76-1.46); THYROID STIMULATING HORMONE 2.34 uIU/ML (0.358-3.740)
== END ==
LOC: M LAB 13:05
PROVIDERS: ATTEND Nurse Practitioner Family
DX: E89.0 Postprocedural hypothyroidism (principal)

== ENCOUNTER 2022-05-02 14:24 | Outpatient (RCR) | payer BC | END 2022-05-06 | LOC: M PT 14:24 | PROVIDERS: ATTEND Orthopaedic Surgery | DX: M26.629 Arthralgia of temporomandibular joint, unspecified side (principal) ==

== ENCOUNTER → 2022-06-05 | Outpatient (RCR) | payer BC | LOC: M PT 05-09 14:16 | DX: M26.609 Unspecified temporomandibular joint disorder, unspecified side (principal) ==

== ENCOUNTER → 2023-02-17 | Outpatient (REF) | payer BC ==
[2023-02-17 20:41] LABS: THYROID STIMULATING HORMONE 11.132 uIU/ML (0.55-4.78)
[2023-02-17 20:42] LABS: FREE T4 1.25 NG/DL (0.89-1.76)
== END ==
LOC: M LAB REF 19:58
PROVIDERS: ATTEND Nurse Practitioner Family
DX: E89.0 Postprocedural hypothyroidism (principal)

== ENCOUNTER → 2023-02-17 | Outpatient (REF) | payer BC ==
[2023-02-17 20:37] LABS: BASO % 0.2 % (0.0-1.0); EOS # 0.1 10^3/uL (0.0-0.5); EOS % 1.6 % (0.0-3.0); HEMATOCRIT 43.2 % (36.0-47.0); HEMOGLOBIN 14.6 g/dl (12.0-15.5); LYMPH % 12.5 % (24.0-44.0); MEAN CORPUSCULAR HEMOGLOBIN 31.1 pg (27.0-33.0); MEAN CORPUSCULAR HGB CONC 33.8 g/dl (32.0-36.5); MEAN CORPUSCULAR VOLUME 91.9 fl (80.0-96.0); MONO # 0.5 10^3/uL (0.0-0.8); MONO % 6.3 % (2.0-8.0); NEUTROPHILS # 6.4 10^3/uL (1.5-8.5); NEUTROPHILS % 79.2 % (36.0-66.0); PLATELET COUNT, AUTOMATED 187 10^3/uL (150-450); WHITE BLOOD COUNT 8.1 10^3/uL (4.0-10.0)
[2023-02-17 20:39] LABS: ALBUMIN 4.4 G/DL (3.2-5.2); ALKALINE PHOSPHATASE 60 U/L (46-116); ALT/SGPT 16 U/L (7.0-40); AST/SGOT 14 U/L (<34); BILIRUBIN,TOTAL 0.5 MG/DL (0.3-1.2); BLOOD UREA NITROGEN 14 MG/DL (9-23); CALCIUM LEVEL 9.8 MG/DL (8.5-10.1); CARBON DIOXIDE LEVEL 30 MMOL/L (20-31); CHLORIDE LEVEL 104 MMOL/L (98-107); CHOLESTEROL LEVEL 238 MG/DL (<200); CHOLESTEROL RISK RATIO 3.44 (<5); CREATININE FOR GFR 0.59 MG/DL (0.55-1.30); GLOMERULAR FILTRATION RATE > 60.0 (>58); GLUCOSE, FASTING 86 MG/DL (60-100); LDL CHOLESTEROL 143.6 MG/DL (<100); POTASSIUM SERUM 4.1 MMOL/L (3.5-5.1); SODIUM LEVEL 142 MMOL/L (136-145); TOTAL PROTEIN 6.9 G/DL (5.7-8.2); TRIGLYCERIDES LEVEL 127 MG/DL (<150)
[2023-02-17 20:41] LABS: TOTAL 25(OH) VITAMIN D 29.5 NG/ML (20.0-100.0)
== END ==
LOC: M SFHCADAM 20:00
PROVIDERS: ATTEND Physician Assistant Medical
DX: Z00.00 Encounter for general adult medical examination without abnormal findings (principal); I10 Essential (primary) hypertension; E03.9 Hypothyroidism, unspecified

== ENCOUNTER → 2023-04-15 | Outpatient (REF) | payer BC ==
[2023-04-15 17:35] LABS: FREE T4 1.28 NG/DL (0.89-1.76); THYROID STIMULATING HORMONE 5.473 uIU/ML (0.55-4.78)
== END ==
LOC: M LABDRWAD 16:36
PROVIDERS: ATTEND Nurse Practitioner Family
DX: E89.0 Postprocedural hypothyroidism (principal)

== ENCOUNTER → 2024-02-19 | Outpatient (REF) | payer BC ==
[2024-02-19 17:43] LABS: FREE T4 1.51 NG/DL (0.89-1.76); THYROID STIMULATING HORMONE 2.466 uIU/ML (0.55-4.78)
== END ==
LOC: M LABDRWAD 16:59
PROVIDERS: ATTEND Nurse Practitioner Family
DX: E89.0 Postprocedural hypothyroidism (principal)

== ENCOUNTER → 2025-02-08 | Outpatient (CLI) | payer BC, MEDICARE | LOC: M ADAMS 13:54 | PROVIDERS: ATTEND Physician Assistant Medical | DX: M25.551 Pain in right hip (principal) ==

== ENCOUNTER → 2025-02-08 | Outpatient (REF) | payer BC, MEDICARE ==
[2025-02-08 18:01] LABS: FREE T4 1.32 NG/DL (0.89-1.76)
== END ==
LOC: M LABDRWAD 17:00
PROVIDERS: ATTEND Nurse Practitioner Family
DX: E89.0 Postprocedural hypothyroidism (principal)

== ENCOUNTER → 2025-04-19 | Outpatient (REF) | payer BC, MEDICARE ==
[2025-04-19 18:41] LABS: FREE T4 1.58 NG/DL (0.89-1.76)
== END ==
LOC: M LABDRWAD 17:39
PROVIDERS: ATTEND Nurse Practitioner Family
DX: E89.0 Postprocedural hypothyroidism (principal)